=== PATIENT | male | born 1980 | race Caucasian/White ===

== ENCOUNTER 2017-06-24 12:05 | Inpatient (IN) | payer OTHER ==
[~2017-06-24] VITALS: Ht 182.9 cm; Wt 139.7 kg
[2017-06-24 12:08] VITALS: BP 169/92
[2017-06-24 12:32] LABS: HEMATOCRIT 49.9 % (42.0-52.0); HEMOGLOBIN 15.8 gm/dL (14.0-18.0); MCH 30.5 pg (26.0-34.0); MCHC 31.7 g/dL (28.0-37.0); MCV 96.2 fL (80.0-100.0); MPV 7.4 fl. (7.2-11.1); NUCLEATED RBCS 0 /100WBC; PLATELET COUNT* 462 thou/uL (150-400); RBC 5.19 mil/uL (4.50-6.00); RDW-CV 14.4 % (10.5-14.5); WBC 20.9 thou/uL (4.0-11.0)
[2017-06-24 12:38] LABS: ANION GAP 27 mmol/L (7-16); BUN 17 mg/dL (7-18); CALCIUM 8.8 mg/dL (8.5-10.1); CHLORIDE 102 mmol/L (98-107); CREATININE 1.4 mg/dL (0.6-1.3); GLUCOSE 245 mg/dL (70-99); POTASSIUM 3.5 mmol/L (3.5-5.1); SODIUM 140 mmol/L (136-145)
[2017-06-24 12:52] LABS: ALBUMIN 4.6 g/dL (3.4-5.0); ALKALINE PHOSPHATASE 98 U/L (46-116); SGOT 27 U/L (15-37); SGPT 48 U/L (30-65); TOTAL BILIRUBIN 0.4 mg/dL (<0.1-1.0); TOTAL PROTEIN 8.7 g/dL (6.4-8.2); TROPONIN-I LEVEL <0.06 ng/mL (<0.06)
[2017-06-24 12:54] LABS: CO2 11 mmol/L (21-32)
[2017-06-24 12:59] LABS: ABSOLUTE BASOPHILS 0.4 thou/uL (0.0-0.2); ABSOLUTE EOSINOPHILS 0.4 thou/uL (0.0-0.7); ABSOLUTE LYMPHOCYTES 9.2 thou/uL (0.8-5.3); ABSOLUTE MONOCYTES 1.3 thou/uL (0.0-1.2); ABSOLUTE NEUTROPHILS 9.6 thou/uL (1.6-8.1)
[2017-06-24 13:00] LABS: CLUMPED PLTS RARE; PLATELET ESTIMATE INCREASED
[2017-06-24 13:20] LABS: BE -16.9 mmol/L (-2 to +3); HCO3 12.8 mmol/L (22.0-26.0); PCO2 44.8 mmHg (35.0-45.0)
[2017-06-24 13:21] LABS: PO2 269.6 mmHg (75.0-100.0); pH 7.075 (7.340-7.450)
[2017-06-24 13:30] LABS: URINE BILIRUBIN NEGATIVE (Negative); URINE BLOOD 2+ (Negative); URINE CLARITY CLEAR; URINE COLOR YELLOW; URINE GLUCOSE-RANDOM 1+ (Negative); URINE KETONES NEGATIVE (Negative); URINE LEUKOCYTES-REFLEX NEGATIVE (Negative); URINE NITRITE-REFLEX NEGATIVE (Negative); URINE PROTEIN 2+ (Negative); URINE SPECIFIC GRAVITY >= 1.030 (1.005-1.030); URINE UROBILINOGEN 0.2 E.U./dl (0.2-1.0)
[2017-06-24 13:37] LABS: AMP/METHAMP Negative (Negative); BARBITURATES Negative (Negative); BENZODIAZEPINES POSITIVE (Negative); COCAINE Negative (Negative); METHADONE Negative (Negative); OPIATES Negative (Negative); PCP Negative (Negative); THC POSITIVE (Negative)
[2017-06-24 13:39] LABS: HYALINE CASTS 0-3 Few /LPF (None Seen); MUCUS 0-3 Light strn/LPF (None Seen)
[2017-06-24 13:40] LABS: URINE RBC 0-2 Rare /HPF (0-2)
[2017-06-24 13:41] LABS: BACTERIA-REFLEX None Seen /HPF (None Seen); CRYSTALS None Seen /LPF (None Seen); SQUAMOUS NONE SEEN /LPF (0-3); URINE WBC-REFLEX None Seen /HPF (0-5)
[2017-06-24 14:58] LABS: CSF GLUCOSE 101 mg/dl (40-70); CSF PROTEIN 67.1 mg/dl (15-45)
[2017-06-24 15:05] LABS: BE -4.4 mmol/L (-2 to +3); HCO3 19.8 mmol/L (22.0-26.0); PCO2 34.1 mmHg (35.0-45.0); PO2 87.5 mmHg (75.0-100.0); pH 7.381 (7.340-7.450)
[2017-06-24 15:24] LABS: CSF CLARITY CLEAR; CSF COLOR COLORLESS; CSF RBC 0 /mm3; CSF WBC 4 /mm3 (0-10); VOLUME 10.5 ml
[2017-06-24 15:40] VITALS: BP 113/72
[2017-06-24 15:43] VITALS: BP 104/63
[2017-06-24 17:48] VITALS: BP 104/67
[2017-06-24 20:00] VITALS: BP 107/63
[2017-06-24 22:00] VITALS: BP 111/66
[2017-06-25] VITALS (16 sets, daily range): BP systolic 102–167; BP diastolic 57–105
[2017-06-25 04:34] LABS: HEMATOCRIT 41.3 % (42.0-52.0); MCH 30.5 pg (26.0-34.0); MCHC 33.8 g/dL (28.0-37.0); MPV 7.2 fl. (7.2-11.1); RBC 4.58 mil/uL (4.50-6.00); WBC 18.7 thou/uL (4.0-11.0)
[2017-06-25 04:48] LABS: MCV 90.2 fL (80.0-100.0)
[2017-06-25 04:51] LABS: BE -7.7 mmol/L (-2 to +3); HCO3 16.9 mmol/L (22.0-26.0); PCO2 32.3 mmHg (35.0-45.0); PO2 71.1 mmHg (75.0-100.0); pH 7.337 (7.340-7.450)
[2017-06-25 04:54] LABS: ALBUMIN 3.8 g/dL (3.4-5.0); CALCIUM 8.7 mg/dL (8.5-10.1); MAGNESIUM 2.8 mg/dL (1.8-2.4); TOTAL BILIRUBIN 0.5 mg/dL (<0.1-1.0); TOTAL PROTEIN 6.6 g/dL (6.4-8.2)
[2017-06-25 05:01] LABS: CREATININE 2.9 mg/dL (0.6-1.3); POTASSIUM 4.8 mmol/L (3.5-5.1)
[2017-06-25 09:03] LABS: URINE POTASSIUM-RANDOM 7.7 mmol/L
--- NOTE | 2017-06-25 11:39 | EKG ---
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
--- NOTE | 2017-06-25 12:26 | CON ---
[facility] [place] [address] [place] [address] CONSULTATION Name: RASHAD WOODRUFF Room: [address] IN .R.#: [id number] Admission: 06/24/17 Attend Phys: Dale Mujica MD Discharge: Date of : 76 Report #: [id number] THIS REPORT FOR: //name// CC: SHANTA physician/PCP Dale Mujica DATE OF SERVICE: 06/25/2017 REQUESTING PHYSICIAN: Dale Mujica M.D. REASON FOR CONSULTATION: Ventilator management, status post seizures. DISCUSSION: The patient is a 37-year-old man who has no history of underlying lung disease. He was brought to the Emergency Department yesterday due to seizures. It was witnessed by his at home. He was postictal and diaphoretic when seen in the Emergency Department. He had been incontinent. He was intubated in the Emergency Department. We were asked to see him. Phone calls were made to my associate last night and ventilator adjustments were made. He was seen by Neurology yesterday. Apparently had not felt well yesterday. Did have additional seizures in the Emergency Department. No prior history of seizures. He is not on any home medications. Does not smoke cigarettes and does not drink alcohol. Occasionally, does smoke marijuana and he had smoked it the night before. He has had imaging studies done of his head, which were negative for acute findings. He has a lumbar puncture done as well. Overnight, he has had a T-max of 99. He has been hemodynamically stable. He is sedated with the propofol. He is not having many secretions. PAST MEDICAL HISTORY: Also was fairly unremarkable. SOCIAL HISTORY: He is . Nonsmoker. 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 REVIEW OF SYSTEMS: Unable to obtain from his . She does note one-time when he did have surgery, he came out of the anesthetic he was extremely wild and combative and extubated himself. He has had some headaches. FAMILY HISTORY: Positive for seizures. PHYSICAL EXAMINATION: GENERAL APPEARANCE: The patient is a male looks stated age. He is intubated, sedated with propofol. HEENT: Head is normocephalic. Sclerae nonicteric. Mucous membranes are moist. NECK: Negative for adenopathy. No JVD. HEART: Regular. No murmur or gallop is heard. LUNGS: Sounds are clear. Air exchange is equal. No wheezing is heard. Airway pressures are low. ABDOMEN: Soft without appreciable hepatosplenomegaly. [place] [address] CONSULTATION Name: RASHAD WOODRUFF Room: [address]#: [id number] Admission: 06/24/17 Attend Phys: Dale Mujica MD Discharge: Date of : 76 Report #: [id number] EXTREMITIES: There is no clubbing. No lower extremity edema. He is intubated. He also has orogastric tube in place. SKIN: Warm. He is mildly diaphoretic. Currently, he is on the propofol drip, ceftriaxone, Protonix, Lovenox for DVT prophylaxis, Keppra, DuoNeb every 4 hours, potassium replacement protocol, p.r.n. fentanyl and was given dose of vancomycin yesterday. LABORATORY AND X-RAY FINDINGS: Initial blood gases done yesterday in the ED after intubation, he had a pH of 7.08, pCO2 of 45, pO2 of 270, bicarbonate is 13 with a saturation of 98%. Blood gases done early this morning, pH 7.34, pCO2 32, pO2 71, bicarbonate is 17 with a saturation of 92%. That was on the ventilator, FiO2 of 35%, 5 of PEEP with a rate of 20 and tidal volume is 650. On his chemistry this morning, BUN is 31, creatinine of 2.9, serum bicarb 19 and potassium is 4.8. AST 30 and total bilirubin 0.5. Total CPK yesterday was 239 with repeat pending from this morning. Drug screen was positive for marijuana and benzodiazepines. White blood cell count yesterday 20,900 and this morning it is 18,700, hemoglobin 14, hematocrit 41.3 and platelets are normal. CRP yesterday was less than 2. Blood cultures and CSF cultures are pending. X-rays were reviewed. Endotracheal tube is in position. He does have some mild bibasilar infiltrates/atelectasis noted. ____ look better this morning relative to yesterday. EKG yesterday showed sinus tachycardia. IMPRESSION: 1. Acute respiratory failure, intubated primarily to protect airway. 2. New onset seizures. Remains seizure free overnight. 3. Metabolic acidosis. 4. Pulmonary infiltrates, suspect had aspiration with his seizures and alterations in level of consciousness. 5. Acute kidney injury. 6. Mild leukocytosis. Could be stress. RECOMMENDATIONS: 1. We will wean off propofol. Hopefully, we can get him extubated today. 2. Continue evaluation as per Neurology. 3. Followup x-rays. 4. Discussed with his and his parents at the bedside as well as his nurse and respiratory therapy. <ELECTRONICALLY SIGNED> By: Malia Hirsch MD 06/25/17 1226 0932 MD mauro Lin
[2017-06-25 15:11] LABS: BE -8.8 mmol/L (-2 to +3); PCO2 27.1 mmHg (35.0-45.0); PO2 75.1 mmHg (75.0-100.0); pH 7.361 (7.340-7.450)
[2017-06-26] VITALS (7 sets, daily range): BP systolic 141–168; BP diastolic 70–101
[2017-06-26 04:51] LABS: ANION GAP 14 mmol/L (7-16); BUN 57 mg/dL (7-18); CALCIUM 8.2 mg/dL (8.5-10.1); CHLORIDE 104 mmol/L (98-107); CO2 21 mmol/L (21-32); GLUCOSE 113 mg/dL (70-99); MAGNESIUM 2.7 mg/dL (1.8-2.4); POTASSIUM 4.5 mmol/L (3.5-5.1); SODIUM 139 mmol/L (136-145)
[2017-06-26 05:09] LABS: MCH 30.7 pg (26.0-34.0); MCHC 34.2 g/dL (28.0-37.0); MCV 89.7 fL (80.0-100.0); MPV 7.3 fl. (7.2-11.1); RBC 3.68 mil/uL (4.50-6.00); RDW-CV 13.7 % (10.5-14.5); WBC 15.5 thou/uL (4.0-11.0)
[2017-06-26 05:18] LABS: CREATININE 6.5 mg/dL (0.6-1.3)
[2017-06-26 05:24] LABS: HEMOGLOBIN 11.3 gm/dL (14.0-18.0)
[2017-06-26 05:54] LABS: AMMONIA < 10 umol/L (11-32)
--- NOTE | 2017-06-26 10:28 | CON ---
[address] [address] CONSULTATION Name: RASHAD WOODRUFF Room: [address] IN .R.#: [id number] Admission: 06/24/17 Attend Phys: Dale Mujica MD Discharge: Date of : 76 Report #: [id number] THIS REPORT FOR: //name// CC: FAM physician/PCP Dale Mujica DATE OF SERVICE: 06/25/2017 NEPHROLOGY CONSULTATION CONSULTING PHYSICIAN: Dale Mujica MD REASON FOR NEPHROLOGY CONSULTATION: Acute kidney injury. REASON FOR ADMISSION: Seizures. HISTORY OF PRESENT ILLNESS: This is a 37-year-old male who has no past medical history who was brought in by EMS because he had a seizure at home. The patient then had a seizure en route to the ER and then had another seizure in the ER. Neurology is already following him. The patient was intubated and sedated because of seizures and for airway protection. He was found to have a creatinine of 1.4 yesterday. His blood pressure was also in 160 systolic, but it had dropped to 98 systolic yesterday afternoon. His creatinine has gone up to 2.9 today. He does not have any history of kidney issues, takes NSAIDs about 2-3 months as per the patient's . He does not have any past medical history of seizures, hypertension or diabetes. He does use marijuana and used it the night before he was brought to the ER. He does not drink. He is happy in general and was satisfied with his life. The patient has made about 600 mL of urine overnight. On admission, which was yesterday morning, there was a suspicion for meningitis and the patient was started empirically on vancomycin and given ceftriaxone. His vancomycin level is 30 today and vancomycin has been discontinued now because of acute kidney injury. Currently, the patient is intubated and sedated. and the parents are at the bedside. REVIEW OF SYSTEMS: Limited because he is intubated and sedated. The patient did have a seizure. Currently, he is on the ventilator. No vomiting, no diarrhea and no history of any kidney stones. No urinary problems as per his . Other review of systems is limited because of him being sedated. PAST MEDICAL HISTORY: None. ALLERGIES: PAIN MEDICATIONS ? PAST SURGICAL HISTORY: None. SOCIAL HISTORY: He uses marijuana and used it the night [place] [address] CONSULTATION Name: RASHAD WOODRUFF Room: [address]#: [id number] Admission: 06/24/17 Attend Phys: Dale Mujica MD Discharge: Date of : 76 Report #: [id number], former smoker. No history of any alcohol use. He lives with his . FAMILY HISTORY: No history of any kidney disease in the family. There is a family history of seizures in his brother. PHYSICAL EXAMINATION: VITAL SIGNS: Blood pressure 140/84, pulse ox is 99% on 35% FiO2. Temperature 37.5, pulse rate is 100 and respiratory rate is 20. GENERAL: He is intubated and sedated. HEAD, EYES, EARS, NOSE AND THROAT: ET tube in place and mucous membranes cannot be assessed right now. NECK: No JVD. CHEST: Clear to auscultation bilaterally. No crackles or wheezing heard. CARDIOVASCULAR: S1, S2. No murmurs heard. ABDOMEN: Soft, nondistended and nontender and bowel sounds are present. EXTREMITIES: There is no lower extremity edema, symmetrical extremities. NEUROLOGICAL FUNCTION: Currently he is sedated. PSYCHIATRIC: Cannot assess right now because he is sedated. LABORATORY DATA: From today, WBC is 18.7, hemoglobin 14 and platelet count is 292. Sodium is 141, potassium 4.8, bicarb was 19, creatinine was 2.9 and magnesium is 2.8. Vancomycin level was 30. All other labs are reviewed. IMAGING: Chest x-ray and head CT were reviewed. ASSESSMENT AND PLAN: 1. Acute kidney injury, likely ischemic ATN: The patient's blood pressure fluctuated yesterday and that could have caused some ATN. His CPK initially was within normal range, but we will go ahead and check it again because it could have gone up because the patient did have two episodes of seizures one en route to the hospital and one in the ER. Continue with normal saline at 75 mL an hour. Avoid any magnesium containing compounds. There is no acute need for dialysis. We would also check a renal ultrasound. I's and O's to be maintained. Try to keep his mean arterial pressure more than 65 and avoid hemodynamic fluctuations if possible. Avoid nephrotoxic agents and any kind of dye. Hopefully, creatinine will start getting better soon. The patient is nonoliguric. 2. Anion gap metabolic acidosis: The patient did have lactic acidosis when he came in, but that has improved and that was likely because of seizures. No need for bicarbonate replacement right now. Renal dysfunction is also causing metabolic acidosis. 3. Seizures: Neurology is evaluating the patient and managing. 4. Proteinuria detected on a urine dipstick: This should be repeated once his acute kidney injury gets better. 5. Vancomycin could have also caused some ATN, but his vancomycin has been [address] [place] [place] [address] CONSULTATION Name: RASHAD WOODRUFF Room: [address]#: [id number] Admission: 06/24/17 Attend Phys: Dale Mujica MD Discharge: Date of : 76 Report #: [id number] stopped now and his level is 30. We will continue to monitor kidney function carefully. Thank you for the consultation. We will continue to follow along with you closely. Discussed with the patient's nurse. <ELECTRONICALLY SIGNED> By: Jena Ochoa MD 06/26/17 1028 1010 1306Aoidn Ochoa MD /nt
--- NOTE | 2017-06-26 13:48 | EEG ---
[address] [address] EEG STUDY REPORT Name: RASHAD WOODRUFF Room: [address] IN M.R.#: [id number] Admission: 06/24/17 Attend Phys: Dale Mujica MD Discharge: Date of : 76 Report #: [id number] THIS REPORT FOR: //name// CC: FAM physician/PCP Dale Mujica DATE OF SERVICE: 06/25/2017 This patient is being evaluated for the possibility of seizure. EEG was done by placing the electrode by standard 10/20 system of electrode placement. Both referential and sequential montages were used for recording. Background activity in this patient's EEG is about 7 Hz and 30 microvolts. It is a symmetrical activity, but it is slow on both sides. Photic stimulation was unremarkable. A lot of movement artifact is present because the patient is not cooperative. The patient appeared to be asleep during part of this EEG and that is associated with bilateral slowing. IMPRESSION: This patient's EEG is masked by a lot of artifact. It is not possible to evaluate him for seizure because of that. I would recommend doing a repeat EEG when the patient is more cooperative. I did not see any active epileptiform activity. The EEG is abnormal because it is slow on both sides and that would be consistent with a diagnosis of encephalopathy, although it is a nonspecific finding. <ELECTRONICALLY SIGNED> By: Ras Peñaloza MD 06/26/17 1348 1615 1631Pnohelia Peñaloza MD /riya
[2017-06-27 04:00] VITALS: BP 169/90
[2017-06-27 04:20] LABS: HEMATOCRIT 31.5 % (42.0-52.0); HEMOGLOBIN 10.8 gm/dL (14.0-18.0); MCH 30.9 pg (26.0-34.0); MCHC 34.3 g/dL (28.0-37.0); MCV 89.9 fL (80.0-100.0); MPV 7.4 fl. (7.2-11.1); RBC 3.51 mil/uL (4.50-6.00); RDW-CV 13.9 % (10.5-14.5); WBC 11.3 thou/uL (4.0-11.0)
[2017-06-27 04:44] LABS: CALCIUM 7.7 mg/dL (8.5-10.1); MAGNESIUM 2.5 mg/dL (1.8-2.4); POTASSIUM 5.2 mmol/L (3.5-5.1)
[2017-06-27 04:50] LABS: CREATININE 8.7 mg/dL (0.6-1.3)
[2017-06-27 08:00] VITALS: BP 162/96
[2017-06-27 17:00] VITALS: BP 157/88
[2017-06-27 23:40] VITALS: BP 169/110
[2017-06-28 04:30] VITALS: BP 185/100
[2017-06-28 04:32] LABS: APTT 28.2 Seconds (25.0-31.3); INR 1.1; PROTIME 10.7 Seconds (9.20-11.50)
[2017-06-28 04:35] LABS: ALBUMIN 3.3 g/dL (3.4-5.0); CALCIUM 7.9 mg/dL (8.5-10.1); POTASSIUM 5.4 mmol/L (3.5-5.1); TOTAL BILIRUBIN 0.6 mg/dL (<0.1-1.0); TOTAL PROTEIN 6.3 g/dL (6.4-8.2)
[2017-06-28 04:39] LABS: ABSOLUTE EOSINOPHILS 0.1 thou/uL (0.0-0.7); ABSOLUTE LYMPHOCYTES 0.9 thou/uL (0.8-5.3); ABSOLUTE MONOCYTES 1.1 thou/uL (0.0-1.2); ABSOLUTE NEUTROPHILS 6.9 thou/uL (1.6-8.1); BASOPHILS 0.5 %; EOSINOPHILS 1.3 %; HEMATOCRIT 30.9 % (42.0-52.0); HEMOGLOBIN 10.7 gm/dL (14.0-18.0); MCH 31.2 pg (26.0-34.0); MCHC 34.7 g/dL (28.0-37.0); MONOCYTES 12.1 %; MPV 7.4 fl. (7.2-11.1); NUCLEATED RBCS 0 /100WBC; PLATELET COUNT* 190 thou/uL (150-400); POLYS 76.1 %; RBC 3.44 mil/uL (4.50-6.00); RDW-CV 13.5 % (10.5-14.5)
[2017-06-28 04:51] LABS: CREATININE 10.2 mg/dL (0.6-1.3)
[2017-06-28 08:00] VITALS: BP 177/97
[2017-06-28 11:32] VITALS: BP 179/112
[2017-06-28 15:58] VITALS: BP 176/80
[2017-06-28 20:00] VITALS: BP 170/102
[2017-06-28 22:00] VITALS: BP 129/84
[2017-06-29 00:20] VITALS: BP 141/79
[2017-06-29 03:35] VITALS: BP 151/95
[2017-06-29 04:26] LABS: CALCIUM 7.6 mg/dL (8.5-10.1); MAGNESIUM 2.4 mg/dL (1.8-2.4); POTASSIUM 5.2 mmol/L (3.5-5.1)
[2017-06-29 04:49] LABS: CREATININE 9.2 mg/dL (0.6-1.3)
[2017-06-29 07:45] VITALS: BP 165/108
[2017-06-29 12:08] VITALS: BP 169/125
[2017-06-29 14:11] LABS: HEPATITIS B SURFACE AG Negative (Negative)
[2017-06-29 16:08] VITALS: BP 159/85
[2017-06-29 17:14] LABS: GLOBULIN TOTAL 2.4 g/dL (2.2-3.9); M-SPIKE Not Observed g/dL (Not Observed)
[2017-06-29 19:36] VITALS: BP 151/85
[2017-06-30] VITALS (7 sets, daily range): BP systolic 145–194; BP diastolic 94–112
[2017-06-30 05:11] LABS: ALBUMIN 3.3 g/dL (3.4-5.0); CALCIUM 8.1 mg/dL (8.5-10.1); POTASSIUM 5.1 mmol/L (3.5-5.1); TOTAL BILIRUBIN 0.6 mg/dL (<0.1-1.0); TOTAL PROTEIN 6.1 g/dL (6.4-8.2)
[2017-06-30 17:17] LABS: MAGNESIUM 2.4 mg/dL (1.8-2.4)
[2017-07-01 04:40] VITALS: BP 130/78
[2017-07-01 07:35] LABS: CALCIUM 8.3 mg/dL (8.5-10.1); CREATININE 8.7 mg/dL (0.6-1.3); POTASSIUM 5.3 mmol/L (3.5-5.1)
[2017-07-01 09:00] VITALS: BP 160/97
[2017-07-01 16:00] VITALS: BP 165/112
[2017-07-02 04:01] VITALS: BP 164/102
[2017-07-02 04:51] LABS: HEMATOCRIT 30.1 % (42.0-52.0); HEMOGLOBIN 10.7 gm/dL (14.0-18.0); MCH 31.2 pg (26.0-34.0); MCHC 35.6 g/dL (28.0-37.0); MCV 87.4 fL (80.0-100.0); MPV 7.3 fl. (7.2-11.1); RBC 3.44 mil/uL (4.50-6.00); RDW-CV 13.5 % (10.5-14.5); WBC 8.8 thou/uL (4.0-11.0)
[2017-07-02 04:53] LABS: ALBUMIN 3.3 g/dL (3.4-5.0); CALCIUM 8.5 mg/dL (8.5-10.1); CREATININE 8.8 mg/dL (0.6-1.3); MAGNESIUM 2.6 mg/dL (1.8-2.4); POTASSIUM 4.9 mmol/L (3.5-5.1); TOTAL BILIRUBIN 0.4 mg/dL (<0.1-1.0); TOTAL PROTEIN 5.9 g/dL (6.4-8.2)
[2017-07-02 08:25] VITALS: BP 167/103
[2017-07-02 09:09] LABS: GLOMERULR BASEM MEMBRN AB 3 units (0-20)
[2017-07-02 16:00] VITALS: BP 154/94
[2017-07-02 20:10] VITALS: BP 158/99
[2017-07-02 23:41] VITALS: BP 169/89
[2017-07-03 03:42] VITALS: BP 164/97
[2017-07-03 04:36] LABS: ALBUMIN 3.4 g/dL (3.4-5.0); CALCIUM 8.9 mg/dL (8.5-10.1); CREATININE 8.3 mg/dL (0.6-1.3); POTASSIUM 5.1 mmol/L (3.5-5.1); TOTAL BILIRUBIN 0.5 mg/dL (<0.1-1.0); TOTAL PROTEIN 6.2 g/dL (6.4-8.2)
[2017-07-03 07:40] VITALS: BP 161/95
[2017-07-03] MEDS ORDERED: NORVASC 5 MG TAB5 MG PO (10:02)
[2017-07-03] MEDS ORDERED: CLONIDINE0.1 PO (10:02)
[2017-07-03] MEDS ORDERED: KEPPRA 500 MG500 M1 PO (10:02)
[2017-07-03 10:15] VITALS: BP 161/95
[2017-07-03 17:08] LABS: URINE PROTEIN (MG/DL) 48.9 mg/dL (Not Estab.)
[2017-07-03 19:10] LABS: ANA INTERPRETATION Negative (())
--- NOTE | 2017-08-13 09:34 | EEG ---
[address] [address] EEG STUDY REPORT Name: RASHAD WOODRUFF Room: [address] IN ..#: [id number] Admission: 06/24/17 Attend Phys: Dale Mujica MD Discharge: 07/03/17 Date of : 76 Report #: [id number] THIS REPORT FOR: //name// CC: FAM physician/PCP Dale Mujica DATE OF SERVICE: 06/26/2017 This patient is being evaluated for the possibility of seizure. EEG was done by placing the electrode by standard 10-20 system of electrode placement. Both referential and sequential montages were used for recording. Background activity in this patient's EEG was about 8-9 Hz and 30 microvolts. The patient went to sleep, that was associated with bilaterally symmetrical sleep spindle and vertex sharp waves. Photic stimulation was unremarkable. Throughout the record, no active epileptiform activity was noted. IMPRESSION: This patient's EEG is intermixed with moderate amount of slowing on both sides. That is a nonspecific abnormality, which can occur with encephalopathy, effect of psychotropic medication, dementia, etc. Clinical correlation is recommended. <ELECTRONICALLY SIGNED> By: Ras Peñaloza MD 08/13/17 0934 1435 1449Parrobel Peñaloza MD /nt
--- NOTE | 2017-08-13 09:40 | EEG ---
[address] [address] EEG STUDY REPORT Name: RASHAD WOODRUFF Room: [address]#: [id number] Admission: 06/24/17 Attend Phys: Dale Mujica MD Discharge: 07/03/17 Date of : 76 Report #: [id number] THIS REPORT FOR: //name// CC: SHANTA physician/PCP Dale Mujica INCOMPLETE DICTATION DATE OF SURGERY: 06/26/2017 This patient's original EEG is lost. DICTATION ENDS HERE. <ELECTRONICALLY SIGNED> By: Ras Peñaloza MD 08/13/17 0940 1432 1443Pnohelia Peñaloza MD /nt
== END 2017-07-03 10:24 | disposition home or self-care (01) | DRG 208 ==
LOC: M.ERS 12:05 → M.TBA-ER 14:05 → M.3W 14:05 → M.ICU 14:05 → M.3W 06-26 11:36
PROVIDERS: Emergency Medicine Emergency Medical Services; Family Medicine; Internal Medicine; Internal Medicine Nephrology; Internal Medicine Pulmonary Disease; ADMIT Internal Medicine
PROC: 5A1935Z Respiratory Ventilation, Less than 24 Consecutive Hours (ICD-10-PCS; principal; 2017-06-25)
PROC: 0BH17EZ Insertion of Endotracheal Airway into Trachea, Via Natural or Artificial Opening (ICD-10-PCS; principal; 2017-06-25)
PROC: 02HV33Z Insertion of Infusion Device into Superior Vena Cava, Percutaneous Approach (ICD-10-PCS; 2017-06-28)
PROC: B548ZZA Ultrasonography of Superior Vena Cava, Guidance (ICD-10-PCS; 2017-06-28)
DX: J69.0 Pneumonitis due to inhalation of food and vomit (principal); G92 Toxic encephalopathy; N17.0 Acute kidney failure with tubular necrosis; J96.00 Acute respiratory failure, unspecified whether with hypoxia or hypercapnia; R65.10 Systemic inflammatory response syndrome (SIRS) of non-infectious origin without acute organ dysfunction; E87.2 Acidosis; M62.82 Rhabdomyolysis; G40.401 Other generalized epilepsy and epileptic syndromes, not intractable, with status epilepticus; I16.0 Hypertensive urgency; I10 Essential (primary) hypertension; F12.90 Cannabis use, unspecified, uncomplicated; Z87.891 Personal history of nicotine dependence; Z88.8 Allergy status to other drugs, medicaments and biological substances

== ENCOUNTER 2017-08-26 07:44 | Emergency (ER) | payer OTHER ==
[~2017-08-26] VITALS: Ht 190.5 cm; Wt 115.3 kg
[~2017-08-26 07:44] MED LIST: CLONIDINE0.1 PO; KEPPRA 500 MG500 M1 PO; NORVASC 5 MG TAB5 MG PO
[2017-08-26 09:00] LABS: HEMOGLOBIN 12.7 gm/dL (14.0-18.0); MCH 30.3 pg (26.0-34.0); MCHC 34.2 g/dL (28.0-37.0); MCV 88.6 fL (80.0-100.0); MPV 7.1 fl. (7.2-11.1); NUCLEATED RBCS 0 /100WBC; PLATELET COUNT* 347 thou/uL (150-400); RBC 4.17 mil/uL (4.50-6.00); RDW-CV 14.4 % (10.5-14.5); WBC 13.4 thou/uL (4.0-11.0)
[2017-08-26 09:20] LABS: CREATININE 1.1 mg/dL (0.6-1.3); POTASSIUM 3.3 mmol/L (3.5-5.1)
[2017-08-26 09:24] LABS: ALBUMIN 3.8 g/dL (3.4-5.0); TOTAL BILIRUBIN 1.3 mg/dL (<0.1-1.0); TOTAL PROTEIN 7.4 g/dL (6.4-8.2)
[2017-08-26 09:47] LABS: ABSOLUTE BASOPHILS 0.1 thou/uL (0.0-0.2); ABSOLUTE LYMPHOCYTES 1.1 thou/uL (0.8-5.3); ABSOLUTE MONOCYTES 1.7 thou/uL (0.0-1.2); ABSOLUTE NEUTROPHILS 10.5 thou/uL (1.6-8.1); ATYPICAL LYMPHS 2 %
[2017-08-26 09:48] LABS: ANISOCYTOSIS 1+; BURR CELLS 1+; OVALOCYTES 1+; PLATELET ESTIMATE ADEQUATE; POLYCHROMASIA 1+
[2017-08-26] MEDS ORDERED: BACTRIM DS TAB1 EACH PO (09:54)
[2017-08-26] MEDS ORDERED: NORCO 5-325 TA1 EACH PO (09:54)
[2017-08-26] MEDS ORDERED: KEFLEX500 M1 PO (09:54)
[2017-08-26] MEDS ORDERED: TORADOL 10 MG T10 MG PO (09:54)
[2017-08-26 10:06] VITALS: BP 141/92
== END 2017-08-26 10:07 | disposition home or self-care (01) ==
LOC: M.ERS 07:44
PROVIDERS: Personal Emergency Response Attendant
DX: L02.415 Cutaneous abscess of right lower limb (principal)

== ENCOUNTER 2017-08-30 16:51 | Inpatient (IN) | payer OTHER ==
[~2017-08-30] VITALS: Ht 190.5 cm; Wt 113.4 kg
[~2017-08-30 16:51] MED LIST changes: +BACTRIM DS TAB1 EACH PO; +KEFLEX500 M1 PO; +NORCO 5-325 TA1 EACH PO; +TORADOL 10 MG T10 MG PO
[2017-08-30 17:19] VITALS: BP 126/86
[2017-08-30 17:59] LABS: ABSOLUTE BASOPHILS 0.1 thou/uL (0.0-0.2); ABSOLUTE EOSINOPHILS 0.2 thou/uL (0.0-0.7); ABSOLUTE LYMPHOCYTES 1.3 thou/uL (0.8-5.3); ABSOLUTE MONOCYTES 0.9 thou/uL (0.0-1.2); ABSOLUTE NEUTROPHILS 6.2 thou/uL (1.6-8.1); BASOPHILS 0.9 %; EOSINOPHILS 2.9 %; HEMATOCRIT 33.5 % (42.0-52.0); HEMOGLOBIN 11.4 gm/dL (14.0-18.0); LYMPHOCYTES 14.9 %; MONOCYTES 10.1 %; NUCLEATED RBCS 0 /100WBC; PLATELET COUNT* 480 thou/uL (150-400); POLYS 71.2 %; RBC 3.81 mil/uL (4.50-6.00); RDW-CV 14.7 % (10.5-14.5); WBC 8.7 thou/uL (4.0-11.0)
[2017-08-30 18:03] LABS: CALCIUM 9.3 mg/dL (8.5-10.1); CREATININE 1.2 mg/dL (0.6-1.3); POTASSIUM 3.1 mmol/L (3.5-5.1)
[2017-08-30 18:09] LABS: ALBUMIN 3.5 g/dL (3.4-5.0); TOTAL BILIRUBIN 0.4 mg/dL (<0.1-1.0); TOTAL PROTEIN 7.8 g/dL (6.4-8.2)
[2017-08-30 20:45] VITALS: BP 120/70
[2017-08-30 21:00] VITALS: BP 114/82
[2017-08-31 08:00] VITALS: BP 141/86
[2017-08-31 08:38] VITALS: BP 114/82
[2017-08-31 10:00] VITALS: BP 143/75
[2017-08-31 12:37] VITALS: BP 143/75
--- NOTE | 2017-08-31 13:07 | H ---
[address] [address] HISTORY AND PHYSICAL Name: RASHAD WOODRUFF Room: [address] IN ..#: [id number] Admission: 08/30/17 Attend Phys: Néstor Ibarra Discharge: Date of : 76 Report #: [id number] THIS REPORT FOR: //name// CC: SHANTA physician/PCP éNstor Ibarra DATE OF SERVICE: 08/31/2017 CHIEF COMPLAINT: Right leg abscess. HISTORY OF PRESENT ILLNESS: This is a pleasant 37-year-old man who presented a few days ago with right leg pain. He was diagnosed with cellulitis. He did not have an abscess at that time. He was discharged home on antibiotics. He then returned to the Emergency Department last night with continued complaints of pain that is sharp, stabbing and located in the right popliteal fossa. He has also had drainage from that area. PAST MEDICAL HISTORY: Seizures. PAST SURGICAL HISTORY: None. SOCIAL HISTORY: He is employed. He is . ALLERGIES: NKDA. MEDICATIONS: Keppra. REVIEW OF SYSTEMS: Twelve-point review of systems is negative, except for what is listed above in the HPI. PHYSICAL EXAMINATION: GENERAL: He is awake, alert, in no acute distress. HEENT: Extraocular movements are intact. Sclerae without icterus. NECK: Supple. CARDIOVASCULAR: Regular rate and rhythm. CHEST: Fair air movement bilaterally. ABDOMEN: Soft. EXTREMITIES: Examination of the right leg demonstrates erythema in the right popliteal fossa. This measures approximately 10 x 10 cm. There is fluctuance. There is a small amount of purulent drainage. RADIOLOGIC FINDINGS: Ultrasound demonstrates a 10-cm abscess. ASSESSMENT AND PLAN: A 37-year-old man with a right leg [place] [address] HISTORY AND PHYSICAL Name: RASHAD WOODRUFF Room: [address]#: [id number] Admission: 08/30/17 Attend Phys: Néstor Ibarra Discharge: Date of : 76 Report #: [id number] plan for incision and drainage under anesthesia. Nature of the procedure, risks and benefits were discussed with the patient. He requests to proceed. <ELECTRONICALLY SIGNED> By: Néstor Ibarra MD 08/31/17 1307 1122 1225Néstor Ibarra MD /nt
--- NOTE | 2017-09-14 17:11 | OP ---
[facility] [address] [place] [address] OPERATIVE REPORT Name: RASHAD WOODRUFF Room: [address] IN .R.#: [id number] Admission: 08/30/17 Attend Phys: Néstor Ibarra Discharge: 08/31/17 Date of : 76 Report #: [id number] THIS REPORT FOR: //name// CC: [facility] physician/PCP Néstor Ibarra DATE OF SERVICE: 08/31/2017 PREOPERATIVE DIAGNOSIS: Right popliteal fossa abscess. POSTOPERATIVE DIAGNOSIS: Right popliteal fossa abscess. OPERATION: Incision and drainage of right popliteal fossa abscess. SURGEON: Néstor Ibarra MD ANESTHESIA: General. ESTIMATED BLOOD LOSS: Minimal. SPECIMENS: Abscess fluid for culture and sensitivity. DESCRIPTION OF PROCEDURE: After informed consent was obtained, the patient was brought to the operating room and placed supine. SCDs were placed and working, preoperative antibiotics were administered, general anesthesia was induced. The right leg was prepped and draped in the usual sterile fashion. In the right popliteal fossa over the area of fluctuance, I made an approximately 5 cm incision. Pus was immediately expressed. Approximately 30 mL of pus was removed. The area was then irrigated and packed with sterile gauze. Sterile dressings were applied. COMPLICATIONS: None. DISPOSITION: The patient was taken to recovery in satisfactory condition. <ELECTRONICALLY SIGNED> By: Néstor Ibarra MD 09/14/17 1711 1124 2249Néstor Ibarra MD /riya
== END 2017-08-31 13:25 | disposition home or self-care (01) | DRG 581 ==
LOC: M.ERS 16:51 → M.TBA-ER 20:10 → M.3W 20:10
PROVIDERS: Physician Assistant Surgical; ADMIT Surgery
PROC: 0J9N0ZZ Drainage of Right Lower Leg Subcutaneous Tissue and Fascia, Open Approach (ICD-10-PCS; principal; 2017-08-31)
DX: L02.415 Cutaneous abscess of right lower limb (principal); Z88.6 Allergy status to analgesic agent; Z79.2 Long term (current) use of antibiotics; Z79.899 Other long term (current) drug therapy

== ENCOUNTER 2017-10-01 09:26 | Inpatient (IN) | payer OTHER ==
[2017-10-01] VITALS (9 sets, daily range): BP systolic 113–165; BP diastolic 70–90
[~2017-10-01] VITALS: Ht 188 cm; Wt 107.0 kg
[2017-10-01 09:53] LABS: ABSOLUTE BASOPHILS 0.1 thou/uL (0.0-0.2); ABSOLUTE LYMPHOCYTES 1.5 thou/uL (0.8-5.3); ABSOLUTE MONOCYTES 0.7 thou/uL (0.0-1.2); ABSOLUTE NEUTROPHILS 11.8 thou/uL (1.6-8.1); BASOPHILS 0.6 %; EOSINOPHILS 0.3 %; HEMATOCRIT 41.8 % (42.0-52.0); LYMPHOCYTES 10.5 %; MCHC 33.4 g/dL (28.0-37.0); MCV 89.7 fL (80.0-100.0); MONOCYTES 5.1 %; NUCLEATED RBCS 0 /100WBC; PLATELET COUNT* 469 thou/uL (150-400); POLYS 83.5 %; RBC 4.66 mil/uL (4.50-6.00); RDW-CV 15.2 % (10.5-14.5); WBC 14.2 thou/uL (4.0-11.0)
[2017-10-01 09:58] LABS: CALCIUM 8.6 mg/dL (8.5-10.1); CREATININE 1.3 mg/dL (0.6-1.3)
[2017-10-01 10:01] LABS: INR 1.1; PROTIME 10.5 Seconds (9.20-11.50)
[2017-10-01 10:02] LABS: ALBUMIN 4.4 g/dL (3.4-5.0); TOTAL BILIRUBIN 0.5 mg/dL (<0.1-1.0); TOTAL PROTEIN 8.5 g/dL (6.4-8.2)
[2017-10-01 10:06] LABS: ACETAMINOPHEN < 2 ug/mL (10-30); ALCOHOL < 10 mg/dL (<10); SALICYLATE 4.9 mg/dL (2.8-20.0)
--- NOTE | 2017-10-01 15:11 | EKG ---
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[facility] : 1980 Requested By: Ankit Blanco Order Number: [id number] MD: Anderson Mcneil Measurements Intervals [place] Rate: 71 P: 25 AR: 152 QRS: 53 QRSD: 101 T: 31 QT: 404 QTc: 439 Interpretive Statements Sinus rhythm Compared to ECG 06/24/2017 12:56:26 Sinus tachycardia no longer present Electronically Signed On 10-01-2017 15:11:13 CDT by Anderson Mcneil [email or web address] <ELECTRONICALLY SIGNED> By: Anderson Mcneil MD, [facility] 10/01/17 1511 0953 0953 Anderson Mcneil MD, FACC /EPI
[2017-10-01 16:30] LABS: URINE BILIRUBIN NEGATIVE (Negative); URINE BLOOD TRACE (Negative); URINE CLARITY CLEAR; URINE COLOR YELLOW; URINE GLUCOSE-RANDOM 1+ (Negative); URINE KETONES NEGATIVE (Negative); URINE LEUKOCYTES-REFLEX NEGATIVE (Negative); URINE NITRITE-REFLEX NEGATIVE (Negative); URINE PROTEIN NEGATIVE (Negative); URINE UROBILINOGEN 0.2 E.U./dl (0.2-1.0)
[2017-10-01 16:41] LABS: AMP/METHAMP Negative (Negative); BARBITURATES Negative (Negative); BENZODIAZEPINES Negative (Negative); COCAINE Negative (Negative); METHADONE Negative (Negative); OPIATES Negative (Negative); PCP Negative (Negative); THC POSITIVE (Negative)
[2017-10-01 16:46] LABS: BACTERIA-REFLEX None Seen /HPF (None Seen); SQUAMOUS NONE SEEN /LPF (0-3); URINE RBC 0-2 Rare /HPF (0-2); URINE WBC-REFLEX None Seen /HPF (0-5)
[2017-10-01 16:47] LABS: CASTS None Seen /LPF (None Seen); URIC ACID CRYSTALS >10 Many /LPF (None Seen)
[2017-10-02] VITALS (11 sets, daily range): BP systolic 114–157; BP diastolic 67–93
[2017-10-02 04:25] LABS: HEMOGLOBIN 13.5 gm/dL (14.0-18.0); MCH 30.1 pg (26.0-34.0); MCHC 33.7 g/dL (28.0-37.0); MCV 89.4 fL (80.0-100.0); MPV 7.4 fl. (7.2-11.1); RBC 4.48 mil/uL (4.50-6.00); WBC 14.6 thou/uL (4.0-11.0)
[2017-10-02 04:50] LABS: CALCIUM 9.1 mg/dL (8.5-10.1); MAGNESIUM 2.2 mg/dL (1.8-2.4); POTASSIUM 3.7 mmol/L (3.5-5.1)
[2017-10-02] MEDS ORDERED: KEPPRA 500 MG500 M1 PO (11:01)
[2017-10-03 04:00] VITALS: BP 139/77
[2017-10-03 07:30] VITALS: BP 134/96
[2017-10-03] MEDS ORDERED: KEPPRA750 MG PO (09:28)
[2017-10-03 10:21] VITALS: BP 134/96
--- NOTE | 2017-10-04 12:34 | EEG ---
[address] [address] EEG STUDY REPORT Name: RASHAD WOODRUFF Room: [address] IN ..#: [id number] Admission: 10/01/17 Attend Phys: Dale Mujica MD Discharge: 10/03/17 Date of : 76 Report #: [id number] THIS REPORT FOR: //name// CC: Flor Mujica DATE OF SERVICE: 10/02/2017 This patient is being evaluated for seizure disorder. EEG was done by placing the electrode by standard 10-20 system of electrode placement. Both referential and sequential montages were used for recording. Background activity in this patient's EEG is about 9-10 Hz and 30 microvolts. A large portion of this EEG was obtained when the patient was asleep and that is associated with bilaterally symmetrical sleep spindle and vertex sharp waves. Photic stimulation was unremarkable. Throughout the record, no active epileptiform activity was noticed. IMPRESSION: This patient's EEG is intermixed with theta range slowing on both sides. That is a nonspecific abnormality, which can occur with dementia and drowsiness, encephalopathy, effect of psychotropic medication. No active epileptiform activity was noticed in this record. <ELECTRONICALLY SIGNED> By: Ras Peñaloza MD 10/04/17 1234 1808 1815MD mauro Hairston
--- NOTE | 2017-10-04 12:34 | CON ---
[address] [address] CONSULTATION Name: RASHAD WOODRUFF Room: [address] IN .R.#: [id number] Admission: 10/01/17 Attend Phys: Dale Mujica MD Discharge: 10/03/17 Date of : 76 Report #: [id number] THIS REPORT FOR: //name// CC: Flor Powell DO DATE OF SERVICE: 10/02/2017 HISTORY OF PRESENT ILLNESS: This is a 37-year-old male patient who is known to me from the last admission. This patient was admitted with seizure, then he had acute tubular necrosis, and it was a pretty unusual presentation. He was on Keppra, but the dose of Keppra is not clear at the moment. He was doing fine when he was taking Keppra, and he does not like Keppra. He stopped taking Keppra, and he came up with a seizure. They saw him in the Emergency Room and admitted him. He has not taken his medication for seizure at least for a week. His appetite is not poor. He is somewhat emotional. I reviewed his prior records, and it looks like his MRI was of poor quality, and he was not able to cooperate. He saw Dr. Charo Powell, who is an epileptologist at [facility]. She was going to switch the medication to something else that the patient's family and the patient does not know which medicine she was planning to switch to, but she was planning to have another MRI done and the family would like to get it done when he is here. REVIEW OF SYSTEMS: I carried out the 14-point review of system and is known to me. He had a renal failure without any definite cause except seizures. Those notes are summarized in my prior notes. Otherwise, his review of system is mostly unremarkable. PAST MEDICAL HISTORY: Positive for seizure as well as renal failure and in fact he went on dialysis. FAMILY HISTORY: Negative for early age seizures. SOCIAL HISTORY: He is , and he does not drink alcohol. PHYSICAL EXAMINATION: Indicate he is alert, responsive. He is sleepy, but wakes up, he does not know what month it is, but he says he never know what month it is, but he knows what hospital he is in, who the president is, what year it is and able to relate his history reasonably well. Cranial nerve examination and neuromuscular examination are unremarkable. I could not look at the fundus. He is a very well-developed individual who does not have any dysmorphic features of eyes, ears and face. His cardiac examination is unremarkable. His respiratory examination is unremarkable. His blood pressure is 157/85, respirations 12, pulse is 71, temperature is 98.6. Blood pressure basically has been unremarkable here. He did not have [place] [address] CONSULTATION Name: KACYRASHAD Talia Room: [address] IN [facility]#: [id number] Admission: 10/01/17 Attend Phys: Dale Mujica MD Discharge: 10/03/17 Date of : 76 Report #: [id number]. LABORATORY DATA: His white count was high, but that is probably because of his seizure. IMPRESSION: Breakthrough seizure because of noncompliance. I had a long talk with this patient. I discussed with him that it is extremely dangerous to do what he did. He had seizures. He went into kidney failure, and now, he stopped his seizure medications altogether and had breakthrough seizures. I also told him that whenever he has a seizure, clock starts all over again, and he has to take seizure precaution for 6 months where he cannot drive and he cannot work near moving machinery or on heights, etc. He understood that. We had that discussion even the last time. RECOMMENDATIONS: 1. Once he stabilizes, I will go ahead and do another MRI on him to make sure there is no abnormality there. He is still recuperating from his kidneys, and I will probably do a noncontrast only to minimize any chance of having those catastrophic dermatological irreversible reaction, but if MRI is abnormal, we can give him contrast. 2. It is not clear what dose of Keppra he took. 3. I will get an EEG done. If EEG does not show any activity, he can be on a relatively small dose of either 500 b.i.d. or 750 b.i.d. 4. I will not change his seizure medications here and let him follow up with his epileptologist and she can readjust the medication as she has planned earlier. All of it was discussed with the patient in great detail and is agreeable with this plan. <ELECTRONICALLY SIGNED> By: Ras Peñaloza MD 10/04/17 1234 1306 [id number] Peñaloza MD /nt
== END 2017-10-03 11:49 | disposition home or self-care (01) | DRG 101 ==
LOC: M.ERS 09:26 → M.ICU 10:44 → M.TBA-ER 10:44 → M.ICU 11:20 → M.2W 10-02 13:27
PROVIDERS: Emergency Medicine; ADMIT Internal Medicine
PROC: 4A00X4Z Measurement of Central Nervous Electrical Activity, External Approach (ICD-10-PCS; principal; 2017-10-02)
DX: G40.409 Other generalized epilepsy and epileptic syndromes, not intractable, without status epilepticus (principal); I10 Essential (primary) hypertension; Z91.14 Patient's other noncompliance with medication regimen; Z87.891 Personal history of nicotine dependence; Z82.0 Family history of epilepsy and other diseases of the nervous system

== ENCOUNTER 2018-08-12 08:38 | Inpatient (IN) | payer OTHER ==
[~2018-08-12] VITALS: Ht 188 cm; Wt 117.9 kg
--- NOTE | ~2018-08-12 | PROC ---
[address] [address] PROCEDURE REPORT Name: RASHAD WOODRUFF JR Room: [facility]- ADM IN M.R.#: [id number] Admission: 08/12/18 Attend Phys: Dale Mujica MD Discharge: Date of : 78 Report #: [id number] THIS REPORT FOR: //name// For GI report, please see the Provation report in Perceptive 7 content. By: [id number] Records Staff ALBERTA /CARMITA
[~2018-08-12 08:38] MED LIST changes: +KEPPRA750 MG PO
[2018-08-12 08:44] VITALS: BP 124/89
[2018-08-12 09:26] LABS: URINE BLOOD NEGATIVE (Negative); URINE CLARITY CLEAR; URINE COLOR YELLOW; URINE GLUCOSE-RANDOM NEGATIVE (Negative); URINE KETONES NEGATIVE (Negative); URINE LEUKOCYTES-REFLEX NEGATIVE (Negative); URINE NITRITE-REFLEX NEGATIVE (Negative); URINE PROTEIN 2+ (Negative); URINE SPECIFIC GRAVITY 1.015 (1.005-1.030)
[2018-08-12 09:27] LABS: ABSOLUTE LYMPHOCYTES 1.5 thou/uL (0.8-5.3); ABSOLUTE MONOCYTES 0.8 thou/uL (0.0-1.2); ABSOLUTE NEUTROPHILS 3.3 thou/uL (1.6-8.1); BASOPHILS 0.4 %; EOSINOPHILS 0.1 %; HEMATOCRIT 41.1 % (42.0-52.0); HEMOGLOBIN 14.5 gm/dL (14.0-18.0); LYMPHOCYTES 26.9 %; MCH 30.4 pg (26.0-34.0); MCHC 35.3 g/dL (28.0-37.0); MCV 86.3 fL (80.0-100.0); MONOCYTES 14.4 %; MPV 8.2 fl. (7.2-11.1); NUCLEATED RBCS 0 /100WBC; PLATELET COUNT* 210 thou/uL (150-400); POLYS 58.2 %; RBC 4.76 mil/uL (4.50-6.00); RDW-CV 14.2 % (10.5-14.5); WBC 5.7 thou/uL (4.0-11.0)
[2018-08-12 09:29] LABS: ICTOTEST (BILI CONFIRMATORY) Positive (Negative); URINE BILIRUBIN 1+ (Negative)
[2018-08-12 09:34] LABS: AMP/METHAMP Negative (Negative); BARBITURATES Negative (Negative); BENZODIAZEPINES Negative (Negative); COCAINE Negative (Negative); METHADONE Negative (Negative); OPIATES Negative (Negative); PCP Negative (Negative); THC POSITIVE (Negative)
[2018-08-12 09:36] LABS: BACTERIA-REFLEX 1-9 Few /HPF (None Seen); CRYSTALS None Seen /LPF (None Seen); HYALINE CASTS 4-10 Moderate /LPF (None Seen); MUCUS >6 Heavy strn/LPF (None Seen); SQUAMOUS 4-10 Moderate /LPF (0-3); URINE RBC 0-2 Rare /HPF (0-2); URINE WBC-REFLEX 0-5 Rare /HPF (0-5)
[2018-08-12 10:06] LABS: CALCIUM 9.3 mg/dL (8.5-10.1); CREATININE 1.1 mg/dL (0.6-1.3); POTASSIUM 4.4 mmol/L (3.5-5.1)
[2018-08-12 10:10] LABS: ALBUMIN 4.1 g/dL (3.4-5.0); TOTAL BILIRUBIN 0.8 mg/dL (<0.1-1.0); TOTAL PROTEIN 7.5 g/dL (6.4-8.2)
[2018-08-12 13:38] VITALS: BP 115/76
--- NOTE | 2018-08-12 14:19 | EKG ---
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 08/12/18 1419 0 0 Emeka Álvarez MD, FACC /EPI
[2018-08-12 14:45] VITALS: BP 115/76
--- NOTE | 2018-08-12 16:08 | NUR ---
PATIENT ARRIVED TO UNIT FROM ER AT 1345. ALERT AND ORIENTED X 4. VITAL SIGNS STABLE ON ROOM AIR. UP INDEPENDENTLY IN ROOM. IV PATENT AND SALINE LOCKED. DENIES PAIN AND NAUSEA AT THIS TIME. ORIENTED PATIENT TO ROOM. CALL LIGHT WITHIN REACH. NURSING WILL CONTINUE TO MONITOR.
--- NOTE | 2018-08-12 17:50 | NUR ---
PATIENT ALERT AND ORIENTED X 4. VITAL SIGNS STABLE ON ROOM AIR. AFEBRILE. UP INDEPENDENTLY IN ROOM. IV PATENT AND SALINE LOCKED. DENIES PAIN AND NAUSEA AT THIS TIME. HOURLY ROUNDS MAINTAINED THROUGHOUT THE SHIFT. CALL LIGHT WITHIN REACH. NURSING WILL CONTINUE TO MONITOR.
[2018-08-12 20:15] VITALS: BP 116/65
[2018-08-13 08:00] VITALS: BP 146/93
[2018-08-13 10:09] LABS: HEPATITIS B SURFACE AG Negative (Negative)
[2018-08-13 14:08] LABS: ANA INTERPRETATION Negative (Negative)
[2018-08-13 16:30] VITALS: BP 129/88
--- NOTE | 2018-08-13 18:14 | NUR ---
ASSUMED CARE OF PATIENT AT APPROX 0730. ALERT AND ORIENTED X4. ASSESSMENT COMPLETED AND CHARTED. VSS ON ROOM AIR. PATIENT HAS MULTIPLE COMPLAINTS OF HEADACHE AND "FEELING WEIRD". WHEN ASKED TO DESCRIBE WHAT HE MEANT BY FEELING WEIRD, PATIENT STATED "I JUST DON'T FELL WELL, I FEEL LIKE I COULD THROW UP BUT NOT REALLY." PATIENT AFEBRILE THROUGHOUT SHIFT. PATIENT UP AND WALKING AROUND THE UNIT, TO THE [employer] AND GIFT SHOP WITH THROUGHOUT SHIFT. HOURLY ROUNDS COMPLETED. CALL LIGHT WITHIN REACH. WILL CONTINUE TO MONITOR.
--- NOTE | 2018-08-13 19:06 | CON ---
[address] [address] CONSULTATION Name: RASHAD WOODRUFF JR Room: [address] IN ..#: [id number] Admission: 08/12/18 Attend Phys: Dale Mujica MD Discharge: Date of : 76 Report #: [id number] THIS REPORT FOR: //name// CC: SHANTA physician/PCP Dale Mujica DICTATED BY: Tamika Vizcarra [facility] DATE OF SERVICE: 08/13/2018 The patient does not have a PCP. Please note at the time of this dictation, the patient was seen and physically examined by myself. REASON FOR CONSULTATION: Nausea, vomiting, anorexia, and extreme fatigue. HISTORY OF PRESENT ILLNESS: This 38-year-old male who presented to the Emergency Room of having greater than almost a two-week duration of ongoing nausea, vomiting, anorexia, severe fatigue, followed with some fever and chills, which he has noted up to 102 prior to admission. He states he has no appetite. He has lost probably 10 pounds over this time. He says he has no energy to do anything at all. He said he has not been able to keep anything down prior to coming in. He does have a history of headaches in the past in which he has taken Tylenol for as well. The patient does admit that he smokes marijuana on a regular basis every night. The patient also states that he has had numerous tick bites recently as well, but he has not noticed any rash, however. He denies any bright red blood or coffee ground emesis with his vomiting. He states he does not have any abdominal pain. No shortness of breath or chest pain. He denies any acid reflux symptoms. He states his bowels typically move normally soft and formed every day except over the last 2 weeks since he has not been eaten. His bowel habits have not been normal. ALLERGIES: No known drug allergies. MEDICATIONS: From home Keppra. PAST MEDICAL HISTORY: Seizures, hypertension. PAST SURGICAL HISTORY: He has had hand surgery and a leg abscess that was drained. FAMILY HISTORY: Significant for breast cancer on maternal side. SOCIAL HISTORY: No tobacco use, occasional alcohol, but [place] [address] CONSULTATION Name: RASHAD WOODRUFF JR Room: [address]#: [id number] Admission: 08/12/18 Attend Phys: Dale Mujica MD Discharge: Date of : 76 Report #: [id number] REVIEW OF SYSTEMS: Twelve-point review of systems is essentially negative except what is mentioned in the HPI. PHYSICAL EXAMINATION: VITAL SIGNS: Temperature 37, pulse 60, respirations 17, blood pressure 146/93. HEART: Regular rate and rhythm. LUNGS: Clear. ABDOMEN: Soft, positive bowel sounds in all 4 quadrants with no masses or tenderness noted. LABORATORY DATA: Hemoglobin 14.5, white count is 5.7, platelets 210. GFR 74. Ferritin was 516. CRP was less than 2. ESR was 0. Acute hepatitis panel is negative. MICHAEL, AMA, and ASMA is all still pending. Total bilirubin 0.8, alkaline phosphatase 50, ALT 115, AST is 88. His ultrasound was completely within normal limits. IMPRESSION: 1. Nausea and vomiting. 2. Anorexia. 3. Weight loss. 4. Elevated LFTs. 5. Family history of breast cancer, maternal side. 6. History of headaches. 7. Regular marijuana use. PLAN: 1. EGD tomorrow. 2. Liver labs are still pending. 3. Further recommendations to be made once the procedure has been performed. Thank you for allowing us to participate in this patient's care. Please do not hesitate to call with any questions in regard to this consult. Agree with above assessment and plan by Tamika Vizcarra. <ELECTRONICALLY SIGNED> By: Walter Polo MD 08/13/18 1906 1154 1448Walter Polo MD /nt
[2018-08-13 20:30] VITALS: BP 138/87
[2018-08-14 03:43] LABS: HEMATOCRIT 33.6 % (42.0-52.0); MCH 30.7 pg (26.0-34.0); MCHC 35.9 g/dL (28.0-37.0); MCV 85.5 fL (80.0-100.0); RBC 3.93 mil/uL (4.50-6.00); WBC 4.9 thou/uL (4.0-11.0)
[2018-08-14 03:51] LABS: ALBUMIN 3.2 g/dL (3.4-5.0); CALCIUM 8.2 mg/dL (8.5-10.1); HEMOGLOBIN 12.1 gm/dL (14.0-18.0); POTASSIUM 4.2 mmol/L (3.5-5.1); TOTAL BILIRUBIN 0.5 mg/dL (<0.1-1.0); TOTAL PROTEIN 6.1 g/dL (6.4-8.2)
[2018-08-14 04:21] VITALS: BP 138/87
--- NOTE | 2018-08-14 06:16 | NUR ---
PATIENT SLEPT THROUGH NIGHT. REPORTED HEADACHE AT BEGINNING OF SHIFT. BECAUSE HE WAS TO BE MADE NPO AT MIDNIGHT HE REQUESTED A DOSE OF TYLENOL AT 2330 WHICH WAS ADMINISTERED. WAS NPO AT MIDNIGHT. UP A FEW TIMES TO RESTROOM. FLUIDS DONE AT 2200 AND SALINE LOCKED.
[2018-08-14 08:10] VITALS: BP 143/92
--- NOTE | 2018-08-14 09:42 | NUR ---
WHILE PICKING PATIENT UP FOR EGD PROCEDURE, AFTER ASSISTING PATIENT INTO WHEELCHAIR, HE BECOMES NAUSEATED AND VOMITS SMALL AMOUNT CLEAR COLORED EMESIS. PATIENT THEN TRANSPORTED TO [facility]. UPON ARRIVAL TO [facility] AT 0946, PATIENT COMPLAINS OF SUBSTERNAL CHEST PAIN. DR. DIOR NOTIFIED OF CHEST PAIN AND NAUSEA. ORDERS FOR ZOFRAN AND STAT EKG. CHEST PAIN LASTS ONLY A FEW MINUTES. PATIENT CONTINUES TO COMPLAIN OF MIGRAINE PAIN, WHICH STARTED EARLIER IN THE MORNING. DENIES FURTHER NAUSEA AFTER ZOFRAN GIVEN.
--- NOTE | 2018-08-14 10:32 | EKG ---
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
--- NOTE | 2018-08-14 12:49 | CON ---
[address] [address] CONSULTATION Name: RASHAD WOODRUFF JR Room: [address] IN .R.#: [id number] Admission: 08/12/18 Attend Phys: Dale Mujica MD Discharge: Date of : 76 Report #: [id number] THIS REPORT FOR: //name// CC: FAM physician/PCP Dale Mujica DATE OF SERVICE: 08/13/2018 INFECTIOUS DISEASE CONSULTATION ATTENDING PHYSICIAN: Dale Mujica MD REASON FOR EVALUATION: Febrile illness with a tick exposure. HISTORY OF PRESENT ILLNESS: Chart reviewed, patient examined. This is a 38-year-old gentleman with history of illness dating back several days, had onset of nausea, emesis without significant abdominal pain, anorexia and poor p.o. intake, progressive fatigue in the legs, did have headaches as well, experienced fever with sweating, has been going on for several days. He finally sought medical attention. Denies any significant pulmonary-related complaints. On review of his typical day, he is primarily someone who spends most of his time outside. He has known tick exposure. He has been in wooded areas. Denies any animal exposure. No recent travel. No dietary indiscretion. He is not encephalopathic at this point. He did receive empiric Sindhu dosing with doxycycline. Evaluation noted unremarkable urinalysis, TSH was normal range. Did have elevated hepatic transaminases, AST of 88 and ALT of 115. Abdominal ultrasound was otherwise unremarkable. CBC showed normal white count and normal platelets. Sed rate of 0. Acute hepatitis panel unremarkable. ALLERGIES: None known. MEDICATIONS: Include doxycycline, levetiracetam, p.r.n. analgesics and antiemetics. PAST MEDICAL HISTORY: History of seizures, hypertension, and recent leg abscess with drainage. SOCIAL HISTORY: Smokes half pack a day, less recently, has utilized marijuana. No ethanol. FAMILY HISTORY: Noncontributory. REVIEW OF SYSTEMS: As noted above, otherwise unremarkable. Subsequent 10-point review of systems associated with history of present illness. PHYSICAL EXAMINATION: [place] [address] CONSULTATION Name: RASHAD WOODRUFF JR Room: [address]#: [id number] Admission: 08/12/18 Attend Phys: Dale Mujica MD Discharge: Date of : 76 Report #: [id number] GENERAL: He is alert. He is cooperative, mild to moderate distress. He is not encephalopathic. VITAL SIGNS: Temperature 98.6, pulse 60, respirations 17, blood pressure 146/93. SKIN: Warm, dry. There are no rashes. There is a focal lesion on the proximal medial aspect of his right thigh, essentially oval-shaped roughly 2-3 cm, salmon-colored. HEENT: Normocephalic. Extraocular muscles intact. NECK: Supple. LUNGS: Generally clear to auscultation. HEART: Regular. I do not appreciate any murmur. ABDOMEN: Soft, nontender. There is no organomegaly. GENITOURINARY: Deferred. RECTAL: Deferred. LABORATORY DATA: Acute hepatitis panel was negative. Sed rate was 0. Ferritin was slightly elevated at 516. CRP of less than 2.0. Ultrasound unremarkable. Electrolytes: Sodium 140, potassium 4.4, chloride 104, bicarbonate is 31, anion gap of 5, BUN and creatinine 17 and 1.1, glucose of 112. AST of 88, ALT of 115, albumin of 4.1, total protein of 7.5. TSH is 0.937, free T4 of 1.19. Urinalysis, 0-5 white cells. CBC: White count of 5.7, H and H 14.5 and 41.1, platelets of 210. Differential unremarkable with a normal lymphocyte count of 1500. ASSESSMENT: Febrile illness with nausea, emesis. Certainly, need to consider tick-borne disease. He is admitted at this time in [place], [place]. We will continue doxycycline at this point. We will check blood cultures just to confer the absence of some sort of bacteremia and see how he does clinically. There are several studies that are pending including Lyme West Nile. <ELECTRONICALLY SIGNED> By: Dean Jang MD 08/14/18 1249 1131 1500Joyola Jang MD /nt
[2018-08-14 16:00] VITALS: BP 138/84
--- NOTE | 2018-08-14 18:48 | NUR ---
PT A&Ox4. VITALS STABLE. TOLERATING REGULAR DIET. HEADACHE CLEARED WITH CURRENT EMAR MEDS. UP AD USHA. IV PATENT. CALL LIGHT WITHIN REACH. WILL CONTINUE TO MONITOR.
[2018-08-14 20:26] VITALS: BP 136/96
[2018-08-15 03:38] LABS: HEMOGLOBIN 12.8 gm/dL (14.0-18.0); MCH 30.3 pg (26.0-34.0); MCHC 35.5 g/dL (28.0-37.0); MCV 85.5 fL (80.0-100.0); MPV 7.7 fl. (7.2-11.1); RBC 4.21 mil/uL (4.50-6.00); RDW-CV 14.2 % (10.5-14.5); WBC 5.3 thou/uL (4.0-11.0)
[2018-08-15 03:51] LABS: CALCIUM 8.5 mg/dL (8.5-10.1); CREATININE 0.9 mg/dL (0.6-1.3); MAGNESIUM 2.1 mg/dL (1.8-2.4); POTASSIUM 4.1 mmol/L (3.5-5.1)
--- NOTE | 2018-08-15 07:36 | NUR ---
Alert and oriented x 4. Up independently in the room. He did have a headache and got tylenol at bedtime. He has slept well.
[2018-08-15] MEDS ORDERED: PHENERGAN 25 MG25 M1 PO (08:28)
[2018-08-15] MEDS ORDERED: DOXYCYCLINE 10100 MG PO (08:28)
[2018-08-15 08:30] VITALS: BP 146/94
[2018-08-15 11:06] VITALS: BP 146/94
--- NOTE | 2018-08-15 12:01 | NUR ---
PT.TO BE DISCHARGED TODAY. UP WALKING IN ROOM. HE SAID HE LIVES WITH HIS .HE IS INDEPENDENT. HE WORKS BUT DOES NOT HAVE INSURANCE. GAVE HIM PACKET FOR THE UNINSURED, ALONG WITH A GOOD RX CARD. HE WAS APPRECIATIVE FOR THE INFORMAITON.
--- NOTE | 2018-08-15 13:38 | NUR ---
PATIENT DISCHARGED FROM UNIT AT 1330. ALERT AND ORIENTED X 4. VITAL SIGNS STABLE ON ROOM AIR. IV DISCONTINUED. DENIES PAIN AND NAUSEA. DISCHARGE INSTRUCTIONS, MEDICATION INFORMATION, AND SCRIPTS GIVEN TO PATIENT. LEFT WITH ALL BELONGINGS. PATIENT LEFT WITH VIA CAR.
[2018-08-15 13:41] VITALS: BP 146/94
[2018-08-16 02:10] LABS: B.burgdorf.IgG Negative (()); B.burgdorf.IgM Negative (())
== END 2018-08-15 13:30 | disposition home or self-care (01) | DRG 866 ==
LOC: M.ERS 08:38 → M.ORTHSURG 12:26 → M.TBA-ER 12:26 → M.ORTHSURG 13:55
PROVIDERS: Personal Emergency Response Attendant; ADMIT Internal Medicine
PROC: 0DJ08ZZ Inspection of Upper Intestinal Tract, Via Natural or Artificial Opening Endoscopic (ICD-10-PCS; principal; 2018-08-14)
DX: A93.8 Other specified arthropod-borne viral fevers (principal); G43.909 Migraine, unspecified, not intractable, without status migrainosus; F12.90 Cannabis use, unspecified, uncomplicated; I10 Essential (primary) hypertension; K75.9 Inflammatory liver disease, unspecified; E86.9 Volume depletion, unspecified; G40.909 Epilepsy, unspecified, not intractable, without status epilepticus; F17.210 Nicotine dependence, cigarettes, uncomplicated; R63.4 Abnormal weight loss; Z68.33 Body mass index [BMI] 33.0-33.9, adult; Z80.3 Family history of malignant neoplasm of breast